=== PATIENT | female | born 1985 | race Two or more races ===

== ENCOUNTER 2025-03-20 21:12 | Emergency (ER) | payer OTHER ==
[~2025-03-20] VITALS: Ht 175.3 cm; Wt 100.0 kg
--- NOTE | 2025-03-20 22:35 | ED.PDOC ---
Altered Mental Status HPI Comments 39-year-old female who came to ER via EMS for altered level of consciousness. Per EMS, patient was last seen normal by family members around 5:00 p.m.. At 8:30 p.m., patient was seen in her room, lying unresponsive, multiple pills inside her mouth and around her vicinity. Patient responsive only to deep sternal stimuli. Blood sugar was 162. Saturating 93% on room air. Family states patient tried overdosing before. Unsure with the patient took (possibly Ambien, amitriptyline and clonidine). She has a history of prior suicide attempts. Patient is still presenting with normal vital sign at this time of care. 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 Allergies: Coded Allergies: NO KNOWN ALLERGIES (Unverified , 03/20/25) Information Source: Emergency Med Personnel Mode of Arrival: EMS Severity: Unable to Care for Self, Unresponsive Timing: Hours Duration: Since onset Prehospital treatment: Oxygen Quality: Decreased Alertness, Change in Behavior Recent: Medication/Drug Abuse Past Medical History PAST MEDICAL HISTORY: Unobtainable Surgical History: Unobtainable [employer] History: Unobtainable Family History Family History: Unobtainable Social History Smoker: Unobtainable Alcohol: Unobtainable Drugs: Unobtainable Lives In: Home Unable to Obtain due to: Altered Mental Status Physical Exam General Appearance: No Apparent Distress, Normal HEENT: Normal ENT Inspection, Pharynx Normal, TMs Normal Neck: Full Range of Motion, Non-Tender, Normal, Normal Inspection Respiratory: Chest Non-Tender, Lungs Clear, No Accessory Muscle Use, No Respiratory Distress, Normal Breath Sounds Cardiovascular: No Edema, No JVD, No Murmur, No Gallop, Normal Peripheral Pulses, Regular Rate/Rhythm Breast Exam: Deferred Gastrointestinal: No Organomegaly, Non Tender, No Pulsatile Mass, Normal Bowel Sounds, Soft Genitalia: Deferred Pelvic: Deferred Rectal: Deferred Extremities: No calf tenderness, Normal capillary refill, Normal inspection, Normal range of motion, Non-tender, No pedal edema Musculoskeletal : Apperance: Normal 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 Was a procedure done?: No Differential Diagnosis (ALOC) Differential Diagnosis: Encephalopathy, Hypoxemia, Seizure, Drug Overdose, ETOH Intoxication, Other (Suicide ideations) X-Ray, Labs, Meds, VS Vital Signs Date Time Temp Pulse Resp B/P (MAP) Pulse Ox O2 Delivery O2 Flow Rate FiO2 03/21/25 04:00 97.2 84 18 127/55 (79) 97 97.2 03/21/25 02:27 74 03/21/25 02:00 70 18 110/66 (81) 98 03/21/25 00:00 94 19 113/66 (82) 100 03/20/25 23:15 97.1 99 22 109/62 (78) 99 97.1 03/20/25 23:15 Nasal Cannula* 2 28 03/20/25 22:39 118 03/20/25 21:30 97.0 124 16 103/47 97 97.0 Lab Test 03/20/25 23:59 03/20/25 22:31 Range/Units Urine Color Colorless Yellow Urine Clarity Clear Clear Urine pH 5.0 5.0-9.0 Urine Specific [place] 1.009 1.001-1.035 Urine Protein Negative Negative Urine Ketones Negative Negative Urine Blood Negative Negative /uL Urine Nitrite Negative Negative Urine Bilirubin Negative Negative Urine Urobilinogen Normal Negative mg/dL Urine Leukocyte Esterase Negative Negative /uL Urine RBC None seen 0 - 4 /hpf Urine Microscopic WBC 0-5 /HPF Urine Squamous Epithelial Cells None seen <5 /hpf Urine Bacteria None seen None Seen /hpf Urine Mucus Few None Seen Urine Glucose Normal Normal mg/dL Urine Test Negative Negative Urine Opiates Screen Neg NEGATIVE Urine Fentanyl Screen Neg NEGATIVE Urine Barbiturates Screen Neg NEGATIVE Urine Phencyclidine Screen Neg NEGATIVE Urine Amphetamines Screen Neg NEGATIVE Urine Benzodiazepines Screen Neg NEGATIVE Urine Cocaine Screen Neg NEGATIVE Urine Cannabinoids Screen Neg NEGATIVE White Blood Count 13.1 H 4.4-10.8 10^3/uL Red Blood Count 4.69 4.0-5.20 10^6/uL Hemoglobin 11.5 L 12.2-16.2 g/dL Hematocrit 35.9 L 36.0-46.0 % Mean Corpuscular Volume 76.5 L 80.0-100.0 fL Mean Corpuscular Hemoglobin 24.5 L 28.0-32.0 pg Mean Corpuscular Hemoglobin Concent 32.0 32.0-36.0 g/dL Red Cell Distribution Width 16.0 H 11.8-14.3 % Platelet Count 333 140-450 10^3/uL Mean Platelet Volume 8.4 6.9-10.8 fL Neutrophils (%) (Auto) 88.8 H 37.0-80.0 % Lymphocytes (%) (Auto) 6.7 L 10.0-50.0 % Monocytes (%) (Auto) 4.0 0.0-12.0 % Eosinophils (%) (Auto) 0.1 0.0-7.0 % Basophils (%) (Auto) 0.4 0.0-2.0 % Neutrophils # (Auto) 11.7 H 1.6-8.6 10 ^3/uL Lymphocytes # (Auto) 0.9 0.4-5.4 10 ^3/uL Monocytes # (Auto) 0.5 0-1.3 10 ^3/uL Eosinophils # (Auto) 0 0-0.8 10 ^3/uL Basophils # (Auto) 0.1 0-0.2 10 ^3/uL Nucleated Red Blood Cells 0.0 % Sodium Level 144 136-145 mmol/L Potassium Level 4.0 3.5-5.1 mmol/L Chloride Level 112 H 98-107 mmol/L Carbon Dioxide Level 22 20-31 mmol/L Anion Gap 10 5-15 Blood Urea Nitrogen 8 L 9-23 mg/dL Creatinine 0.89 0.550-1.02 mg/dL Glomerular Filtration Rate Calc 84 >90 mL/min BUN/Creatinine Ratio 9.0 L 10.0-20.0 Serum Glucose 116 H 74-106 mg/dL Calcium Level 9.0 8.7-10.4 mg/dL Magnesium Level 2.0 1.6-2.6 mg/dL Total Bilirubin < 0.2 L 0.2-1.0 mg/dL Aspartate Amino Transferase (AST) 15 13-40 U/L Alanine Aminotransferase (ALT) 15 7-40 U/L Alkaline Phosphatase 73 46-116 U/L Total Protein 7.5 5.7-8.2 g/dL Albumin 4.5 3.2-4.8 g/dL Salicylates Level < 3.0 -30 mg/dL Acetaminophen Level < 2.0 L 10.0-20.0 UG/ML Plasma/Serum Blood Alcohol 65.7 H <10 mg/dL CHEST RADIOGRAPH Indication: SOB Technique: Single frontal view of the chest was obtained COMPARISON: None FINDINGS: Lines and Tubes: None Lungs: Lung volumes are low with bibasilar subsegmental atelectasis/consolidation. Pleura: No pleural effusion or pneumothorax. Cardiomediastinal contours: Unremarkable IMPRESSION: Low lung volumes with bibasilar subsegmental atelectasis/consolidation. Time of 1ST Reevaluation: 22:31 Reevaluation 1ST: Unchanged Patient Education/Counseling: Pt Unresponsive Family Education/Counseling: No Family Present SEPSIS Sepsis Screen Physician Orders Chest Portable (03/20/25 22:25) Electrocardigram (03/20/25 22:25) Insert Larose Catheter QSHIFT (03/20/25 23:58) Insert Larose Catheter QSHIFT (03/20/25 23:58) Head Without Contrast (03/21/25 00:02) Imaging Transfer Request (03/21/25 03:13) Vital Signs Date Time Temp Pulse Resp B/P (MAP) Pulse Ox O2 Delivery O2 Flow Rate FiO2 03/21/25 04:00 97.2 84 18 127/55 (79) 97 97.2 03/21/25 02:27 74 03/21/25 02:00 70 18 110/66 (81) 98 03/21/25 00:00 94 19 113/66 (82) 100 03/20/25 23:15 97.1 99 22 109/62 (78) 99 97.1 03/20/25 23:15 Nasal Cannula* 2 28 03/20/25 22:39 118 03/20/25 21:30 97.0 124 16 103/47 97 97.0 Laboratory Tests Test 03/20/25 22:31 White Blood Count 13.1 10^3/uL (4.4-10.8) H Departure 1 Departure Time of Disposition: 00:30 Impression: Primary Impression: Toxic encephalopathy Additional Impression: Overdose by ingestion Disposition: 02 SHORT TERM HOSPITAL Condition: Guarded Comments 39-year-old female found by family with NC pill bottles at her side. Patient was found somnolent. Per report the patient takes clonidine and Ambien amitriptyline and these with the pills that were suspected to be taken. Patient is somnolent but responds of 2 painful stimulus. Lab results reviewed. CT of the head shows no acute pathology. Patient gradually improved her mental status to where she would open her eyes to loud voice. I called [facility] and they plan to arrange transfer the patient to a [facility] facility. Authorization number was [id number] Critical Care Note Critical Care Time?: Yes (35 min-critical care time only) Critical care comment: Total critical care time: Approximately 36 minutes Due to a high probability of clinically significant, life threatening deterioration, the patient required my highest level of preparedness to intervene emergently and I personally spent this critical care time directly and personally managing the patient. This critical care time included obtaining a history; examining the patient; pulse oximetry; ordering and review of studies; arranging urgent treatment with development of a management plan; evaluation of patient's response to treatment; frequent reassessment; and, discussions with other providers. This critical care time was performed to assess and manage the high probability of imminent, life-threatening deterioration that could result in multi-organ failure. It was exclusive of separately billable procedures and treating other patients. Stability Stability form required: No Heart Score Heart Score: Heart Score Response (Comments) Value History N/A 0 EKG N/A 0 Age N/A 0 Risk Factors N/A 0 Troponin N/A 0 Total 0 I personally scribed for ZANE DIEZ MD ([email or web address]) on 03/20/25 at 22:35. Electronically submitted by Sushil Ma ([email or web address]). I personally scribed for ZANE DIEZ MD (CASSIE) on 03/20/25 at 23:58. Electronically submitted by Sushil Ma ([email or web address]). I personally scribed for ZANE DIEZ MD (CASSIE) on 03/21/25 at 02:50. Electronically submitted by Sushil Ma ([email or web address]). ZANE DIEZ MD Mar 20, 2025 22:35
[2025-03-20 22:39] LABS: Hematocrit 35.9 % (36.0-46.0); Hemoglobin 11.5 g/dL (12.2-16.2); Mean Corpuscular Hemoglobin 24.5 pg (28.0-32.0); Mean Corpuscular Volume 76.5 fL (80.0-100.0); Nucleated Red Blood Cells % 0.0 %
[2025-03-20 23:09] LABS: Alanine Aminotransferase 15 U/L (7-40); Albumin 4.5 g/dL (3.2-4.8); Alkaline Phosphatase 73 U/L (46-116); Anion Gap 10 (5-15); BUN/Creatinine Ratio 9.0 (10.0-20.0); Calcium 9.0 mg/dL (8.7-10.4); Carbon Dioxide 22 mmol/L (20-31); Magnesium 2.0 mg/dL (1.6-2.6); Potassium 4.0 mmol/L (3.5-5.1); Sodium 144 mmol/L (136-145); Total Protein 7.5 g/dL (5.7-8.2)
[2025-03-20 23:10] LABS: Bilirubin, Total < 0.2 mg/dL (0.2-1.0); Blood Urea Nitrogen 8 mg/dL (9-23); Chloride 112 mmol/L (98-107); Glucose 116 mg/dL (74-106)
--- NOTE | 2025-03-20 23:32 | DVH ---
CHEST RADIOGRAPH Indication: SOB Technique: Single frontal view of the chest was obtained COMPARISON: None FINDINGS: Lines and Tubes: None Lungs: Lung volumes are low with bibasilar subsegmental atelectasis/consolidation. Pleura: No pleural effusion or pneumothorax. Cardiomediastinal contours: Unremarkable IMPRESSION: Low lung volumes with bibasilar subsegmental atelectasis/consolidation.
[2025-03-20 23:49] LABS: Acetaminophen < 2.0 UG/ML (10.0-20.0); Salicylate < 3.0 mg/dL (-30)
[2025-03-21 00:55] LABS: Urine Protein, UAD Negative (Negative)
--- NOTE | 2025-03-21 01:32 | DVH ---
EXAM: CT HEAD WITHOUT CONTRAST INDICATION: ALOC TECHNIQUE: CT of the head without intravenous contrast. Radiation Dose : 1. Head: CT Dose: CTDI volume is 60.89 mGy. Dose-length product is 1078.04 mGy*cm The dose indicators for CT are the volume Computed Tomography (CT) Dose Index (CTDIvol) and the Dose Length Product (DLP), and are measured in units of mGy and mGy-cm, respectively. These indicators are not patient dose, but values generated from the CT scanner acquisition factors. The report includes radiation exposure data for exposures received during this examination. COMPARISON: None FINDINGS: There is no evidence of acute intracranial hemorrhage, extra-axial collection, mass effect, midline s hift, herniation or hydrocephalus. The ventricles, sulci and cisterns are age appropriate. The nolan-white differentiation is intact. The visualized paranasal sinuses and mastoid air cells are clear. The surrounding soft tissues and osseous structures are unremarkable. IMPRESSION: 1. No acute intracranial abnormality. Radiation optimization: All CT scans at this facility use at least one of these dose optimization max hniques: automated exposure control mA and/or kV adjustment per patient size (includes targeted exam s where dose is matched to clinical indication) or iterative reconstruction.
[2025-03-21 01:37] LABS: Amphetamine Screen, Urine Neg (NEGATIVE); Barbiturate Scree,Urine Neg (NEGATIVE); Benzodiazephine Screen, Urine Neg (NEGATIVE); Cannabinoid Screen, Urine Neg (NEGATIVE); Cocaine Screen, Urine Neg (NEGATIVE); Opiate Scree,Urine Neg (NEGATIVE); Phencyclidine Screen, Urine Neg (NEGATIVE)
[2025-03-21 05:45] VITALS: BP 116/58; PULSE 68; RESP 17; TEMP 97.6; O2SAT 98
--- NOTE | 2025-03-21 07:10 | ECG ---
[facility] Test Date: 2025-03-20 Test Time: 22:39:09 Pat Name: ANUJA STANFORD Department: Room: Gender: F Freight Flagman: SUSI : 1985 Requested By: ZANE DIEZ Order Number: [id number] Reading MD: Peter Hyman Measurements Intervals [place] Rate: 118 P: 51 DC: 144 QRS: 9 QRSD: 90 T: 30 QT: 355 QTc: 498 Interpretive Statements Sinus tachycardia Borderline prolonged QT interval Electronically Signed On 03-21-2025 17:57:44 PDT by Peter Hyman Please click the below link to view image of tracing.
== END 2025-03-21 05:59 | disposition short-term general hospital (02) ==
LOC: EDBD 21:12 → ER 21:12
DX: T50.901A Poisoning by unspecified drugs, medicaments and biological substances, accidental (unintentional), initial encounter (principal); G92.9 Unspecified toxic encephalopathy; F17.200 Nicotine dependence, unspecified, uncomplicated; Z91.51 Personal history of suicidal behavior; Z79.899 Other long term (current) drug therapy; Y92.89 Other specified places as the place of occurrence of the external cause
CPT/HCPCS: 36415; 70450; 71045; 80053; 80307; 80320; 80329; 81001; 81025; 82947; 83735; 85025; 93005; 99291